=== PATIENT | female | born 1955 | race Caucasian/White ===

== ENCOUNTER 2018-03-24 16:11 | Emergency (ER) | payer OTHER ==
[2018-03-24] MEDS: ACETAMINOPHEN 325 MG TAB PO (16:46)
== END 2018-03-24 18:03 | disposition home or self-care (01) ==
LOC: FTE 16:11
DX: M25.561 Pain in right knee (principal); M25.571 Pain in right ankle and joints of right foot
CPT/HCPCS: 73562; 73610-RT; 93971; 99284-25